=== PATIENT | male | born 1960 | race Caucasian/White ===

== ENCOUNTER 2025-07-12 13:50 | Outpatient (CLI) | payer OTHER, SELFPAY ==
--- NOTE | 2025-07-12 13:30 | XR_ITS ---
WS: [id number] DEXA (DUAL ENERGY X-RAY ABSORPTIOMETRY) Bone mineral density was performed using a [employer] machine. HISTORY: S22.000A - Wedge compression fracture of unspecified thor... COMPARISON: None available. Lumbar spine BMD (L1-L4): 1.314 g/cm2 T score: 0.8 Z score: 1.0 Total hip BMD: Left: 0.993 g/cm2. T score: -0.7 Z score: -0.4 Right: 0.981 g/cm2. T score: -0.8 Z score: -0.5 10 year probability of a major osteoporotic fracture is 17.1%. XR/XR DEXA axial skeleton* [id number] IMPRESSION: NORMAL BONE MINERAL DENSITY based upon the WHO classification for females.
== END 2025-07-12 13:51 | disposition home or self-care (01) ==
LOC: RAD 13:51
PROVIDERS: PCP Physician Assistant; Visit Provider Anesthesiology Pain Medicine
DX: Z13.820 Encounter for screening for osteoporosis (principal); S22.000A Wedge compression fracture of unspecified thoracic vertebra, initial encounter for closed fracture; X58.XXXA Exposure to other specified factors, initial encounter
CPT/HCPCS: 77080